=== PATIENT | female | born 1945 | race Caucasian/White ===

== ENCOUNTER → 2017-03-10 | Outpatient (CLI) | payer MEDICARE ==
[2017-03-10 07:02] LABS: HEMOGLOBIN 11.9 gm/dl (12.3-15.3); RED BLOOD COUNT 4.01 M/UL (4.00-5.10); WHITE BLOOD COUNT 13.7 K/UL (4.5-11.0)
== END ==
LOC: LAB 06:31
PROVIDERS: Emergency Medicine
DX: D51.8 Other vitamin B12 deficiency anemias (principal); E03.8 Other specified hypothyroidism; E11.69 Type 2 diabetes mellitus with other specified complication; E55.9 Vitamin D deficiency, unspecified; E78.2 Mixed hyperlipidemia; I10 Essential (primary) hypertension; M54.2 Cervicalgia; R53.83 Other fatigue
CPT/HCPCS: 36415; 80053; 80061; 82043; 82570; 82728; 83036; 83540; 83550; 83704; 84443; 85027

== ENCOUNTER → 2017-03-19 | Outpatient (CLI) | payer MEDICARE | LOC: US 14:09 | DX: N18.3 Chronic kidney disease, stage 3 (moderate) (principal); N13.30 Unspecified hydronephrosis; N28.1 Cyst of kidney, acquired ==

== ENCOUNTER → 2017-04-05 | Outpatient (CLI) | payer MEDICARE | LOC: CT 09:00 | DX: R93.8 Abnormal findings on diagnostic imaging of other specified body structures (principal); I12.9 Hypertensive chronic kidney disease with stage 1 through stage 4 chronic kidney disease, or unspecified chronic kidney disease; N18.3 Chronic kidney disease, stage 3 (moderate); N13.30 Unspecified hydronephrosis ==

== ENCOUNTER 2021-12-26 11:31 | Inpatient (IN) | payer MEDICARE, MEDICAID ==
[~2021-12-26] VITALS: Ht 162.6 cm; Wt 78.9 kg
[2021-12-26 12:43] LABS: RED BLOOD COUNT 2.19 M/UL (4.00-5.10); WHITE BLOOD COUNT 14.8 K/UL (4.5-11.0)
[2021-12-26] MEDS ORDERED: ASPIRIN EC81 MG PO (14:37)
[2021-12-26] MEDS ORDERED: JANUVIA50 MG PO (14:37)
[2021-12-26] MEDS ORDERED: NORVASC10 MG PO (14:37)
[2021-12-26] MEDS ORDERED: LIPITOR40 MG PO (14:38)
[2021-12-26] MEDS ORDERED: TENORMIN 50 MG50 MG PO (14:38)
[2021-12-26] MEDS ORDERED: AMARYL2 MG PO (14:38)
[2021-12-26] MEDS ORDERED: ACTOS30 MG PO (14:38)
[2021-12-26] MEDS ORDERED: VITAMIN D325 MCG PO (14:39)
[2021-12-26] MEDS ORDERED: SYNTHROID75 MCG PO (14:39)
[2021-12-26 18:23] LABS: HEMOGLOBIN 6.6 gm/dl (12.3-15.3)
[2021-12-27 04:28] LABS: HEMOGLOBIN 7.2 gm/dl (12.3-15.3); WHITE BLOOD COUNT 15.4 K/UL (4.5-11.0)
[2021-12-27 04:30] LABS: RED BLOOD COUNT 2.58 M/UL (4.00-5.10)
--- NOTE | 2021-12-27 11:27 | NUR ---
1125- NOTIFIED DR GARNER OF BLOOD GLUCOSE 52 AND D50 GIVEN TWICE THIS AM. STATED SHE WOULD PUT IN NEW ORDER. WILL CONTINUE TO MONITOR.
[2021-12-28 04:30] LABS: HEMOGLOBIN 7.3 gm/dl (12.3-15.3); RED BLOOD COUNT 2.68 M/UL (4.00-5.10)
[2021-12-28 04:31] LABS: WHITE BLOOD COUNT 10.3 K/UL (4.5-11.0)
[2021-12-28] MEDS ORDERED: PROTONIX 40 MG40 M1 PO (10:59)
[2021-12-28] MEDS ORDERED: OMNICEF 300 MG300 MG PO (11:00)
[2021-12-28] MEDS ORDERED: HYDROCODON-ACE1 EAC4 PO (11:00)
[2021-12-28] MEDS ORDERED: FERROUS SULFAT325 M2 PO (11:06)
== END 2021-12-28 12:30 | disposition home or self-care (01) | DRG 377 ==
LOC: ER1 11:31 → CDU 14:18 → MED SURG 4 14:18
PROVIDERS: Physician Assistant; Physician Assistant Medical; ADMIT Internal Medicine
PROC: 30233N1 Transfusion of Nonautologous Red Blood Cells into Peripheral Vein, Percutaneous Approach (ICD-10-PCS; principal; 2021-12-26)
DX: K92.2 Gastrointestinal hemorrhage, unspecified (principal); N17.0 Acute kidney failure with tubular necrosis; D62 Acute posthemorrhagic anemia; E11.22 Type 2 diabetes mellitus with diabetic chronic kidney disease; I12.9 Hypertensive chronic kidney disease with stage 1 through stage 4 chronic kidney disease, or unspecified chronic kidney disease; N18.9 Chronic kidney disease, unspecified; E03.9 Hypothyroidism, unspecified; E78.5 Hyperlipidemia, unspecified; M54.9 Dorsalgia, unspecified; G89.29 Other chronic pain; K57.30 Diverticulosis of large intestine without perforation or abscess without bleeding; N30.90 Cystitis, unspecified without hematuria; H11.31 Conjunctival hemorrhage, right eye; D63.1 Anemia in chronic kidney disease; N83.209 Unspecified ovarian cyst, unspecified side; K44.9 Diaphragmatic hernia without obstruction or gangrene; E11.649 Type 2 diabetes mellitus with hypoglycemia without coma; Z79.82 Long term (current) use of aspirin; Z80.9 Family history of malignant neoplasm, unspecified
CPT/HCPCS: 36415; 80048; 80053; 81001; 82272; 82550; 82553; 82962; 83735; 84484; 85014; 85018; 85025; 85027; 86850; 86900; 86901; 86920; 93005; 96374; 99285; J0696; P9016; U0002

== ENCOUNTER → 2022-05-06 | Outpatient (CLI) | payer MEDICARE ==
[~2022-05-06] MED LIST: ACTOS30 MG PO; AMARYL2 MG PO; ASPIRIN EC81 MG PO; FERROUS SULFAT325 M2 PO; HYDROCODON-ACE1 EAC4 PO; JANUVIA50 MG PO; LIPITOR40 MG PO; NORVASC10 MG PO; OMNICEF 300 MG300 MG PO; PROTONIX 40 MG40 M1 PO; SYNTHROID75 MCG PO; TENORMIN 50 MG50 MG PO; VITAMIN D325 MCG PO
== END ==
LOC: LAB 06:13
PROVIDERS: Family Medicine
DX: E11.9 Type 2 diabetes mellitus without complications (principal)
CPT/HCPCS: 36415; 80053; 80061; 83036